=== PATIENT | female | born 1940 | race Caucasian/White ===

== ENCOUNTER 2017-05-31 14:18 | Outpatient (CLI) | payer MEDICARE ==
[2017-05-31 14:53] LABS: Hemoglobin A1c 6.1 % (4.0-6.0)
[2017-05-31 18:54] LABS: Microalbumin Urine Less than 1.0 mg/dL (0.5-50.0); Microalbumin/Creat Ratio 10.2 mg/g (Less than 30)
== END 2017-05-31 14:19 | disposition home or self-care (01) ==
LOC: HPCALD 14:18
PROVIDERS: ATTEND Family Medicine
DX: E11.9 Type 2 diabetes mellitus without complications (principal); E03.9 Hypothyroidism, unspecified
CPT/HCPCS: 36415; 82043; 83036; 84443

== ENCOUNTER 2017-11-14 12:21 | Emergency (ER) | payer MEDICARE ==
[2017-11-14] MEDS ORDERED: Albuterol Sulfate 2.5 mg/3 ml Neb ONE ×2 (12:48→13:49)
--- NOTE | 2017-11-14 12:56 | RAD ---
PORTABLE CHEST ONE VIEW: Date: 11-14-17 Time: 12:25 p.m. History: Dyspnea. FINDINGS: The heart size is borderline. The lungs are well expanded without focal areas of consolidation, pneum othorax, earl pleural edema or pleural effusions. IMPRESSION: No radiographic evidence of acute cardiopulmonary process. POS: C
[2017-11-14 13:02] LABS: #Basophils 0.1 thou/uL (0.0-0.2); #Eosinphils 0.1 thou/uL (0.0-0.7); #Lymphocytes 0.6 thou/uL (1.20-3.40); #Monocytes 0.7 thou/uL (0.11-0.59); #Neutrophils 7.3 thou/uL (1.40-6.50); %Basophils 1.7 % (0.0-1.0); %Eosinophils 0.6 % (0.0-10.0); %Lymphocytes 6.9 % (21.0-51.0); %Monocytes 7.8 % (0.0-10.0); %Neutrophils 82.9 % (42.0-75.0); Hemoglobin 13.4 g/dL (12.0-16.0); Mean Corpuscular HGB CONC 34.6 g/dL (32.0-36.0); Platelet Count 260 thou/uL (130-400); RBC Distribution Width 13.3 % (11.5-14.5); Red Blood Cell (RBC) Count 3.54 mill/uL (4.20-5.40); White Blood Cell (WBC) Count 8.8 thou/uL (4.8-10.8)
[2017-11-14] MEDS ORDERED: methylPREDNISolone Sod Succ/PF 125 MG/2 ML VIAL ONE (13:09)
[2017-11-14 13:10] LABS: ALT (SGPT) 30 U/L (8-55); AST (SGOT) 36 U/L (5-34); Albumin 3.8 g/dL (3.4-4.8); Alkaline Phosphatase 185 U/L (40-150); Anion Gap 20 mmol/L (10-20); BUN (Urea Nitrogen) 10 mg/dL (9.8-20.1); Bilirubin, Total 0.6 mg/dL (0.2-1.2); Calc. Creatinine Clearance 0 mL/min (70-130); Calcium 7.7 mg/dL (7.8-10.44); Carbon Dioxide 27 mmol/L (23-31); Chloride 92 mmol/L (98-107); Estimated GFR-MDRD 78; Globulin 3.6 g/dL (2.4-3.5); Glucose 133 mg/dL (83-110); Potassium 5.4 mmol/L (3.5-5.1); Protein, Total 7.4 g/dL (6.0-8.3); Sodium 134 mmol/L (136-145)
[2017-11-14 13:11] LABS: CKMB 2.7 ng/mL (0-6.6); Troponin I Less than 0.010 ng/mL (< 0.028)
[2017-11-14 13:12] LABS: Base Excess 4.5 mEq/L (-2 - +2); pH (venous) 7.4 (7.35-7.45)
[2017-11-14 13:17] LABS: MDiff Complete? YES; Macrocytosis MODERATE=16-30 cells (100X) (0-5/hpf)
[2017-11-14] MEDS ORDERED: Magnesium Sulfate 2 GM/100 ML BAG ONE (13:26)
[2017-11-14] MEDS ORDERED: cefTRIAXone\\ROCEPHIN 2 GM VIAL ONE (13:43)
[2017-11-14] MEDS ORDERED: Ketorolac Tromethamine 30 MG/ML VIAL ONE (14:00)
[2017-11-14] MEDS ORDERED: Albuterol Sulfate 1.25 MG/3 ML NEB ONE (14:00)
[2017-11-14 14:43] LABS: Bilirubin Negative (Negative); Blood, Urine Negative (Negative); Clarity Clear (Clear); Glucose, Urine (Dipstick) Negative (Negative); Leukocyte Negative (Negative); Nitrite Negative (Negative); Protein, Urine (Dipstick) Negative (Neg-Trace); Urobilinogen 0.2 mg/dL (0.2-1.0)
[2017-11-14 14:50] LABS: Specific Gravity, Urine 1.008 (1.005-1.030)
== END 2017-11-14 14:52 | disposition left against medical advice (07) ==
LOC: BURERS 12:21
DX: J44.1 Chronic obstructive pulmonary disease with (acute) exacerbation (principal); I10 Essential (primary) hypertension; Z87.891 Personal history of nicotine dependence; Z79.899 Other long term (current) drug therapy
CPT/HCPCS: 36415; 71010; 80053; 81003; 82553; 82805; 83605; 83880; 84484; 85025; 87040; 87086; 87804; 93005; 94640; 94760; 96365; 96367; 96375; J0696; J1885; J2930; J3475; J7611; J7620

== ENCOUNTER 2019-07-30 14:36 | Emergency (ER) | payer MEDICARE ==
[~2019-07-30 14:36] MED LIST: Iopamidol 370 76% 100 ML VIAL ONE
[2019-07-30 15:11] LABS: ALT (SGPT) 42 U/L (8-55); AST (SGOT) 15 U/L (5-34); Albumin 3.9 g/dL (3.4-4.8); Alkaline Phosphatase 95 U/L (40-150); Anion Gap 16 mmol/L (10-20); BUN (Urea Nitrogen) 19 mg/dL (9.8-20.1); Bilirubin, Total 0.4 mg/dL (0.2-1.2); CK (CPK) 19 U/L (29-168); Calc. Creatinine Clearance 0 mL/min (70-130); Estimated GFR-MDRD 58; Globulin 2.8 g/dL (2.4-3.5); Glucose 503 mg/dL (83-110); Lipase 11 U/L (8-78); Protein, Total 6.7 g/dL (6.0-8.3)
[2019-07-30 15:13] LABS: Hemoglobin 10.9 g/dL (12.0-16.0); Lymphocytes 1 % (21-51); MDiff Complete? YES; Macrocytosis SLIGHT = 6-15 cells (100X) (0-5/hpf); Mean Corpuscular HGB CONC 30.1 g/dL (32.0-36.0); Mean Corpuscular Hemoglobin 30.6 pg (27.0-31.0); Mean Platelet Volume 7.1 fL (7.4-10.4); Monocytes 3 % (0-10); Neutrophil 96 % (42-75); Platelet Count 238 thou/uL (130-400); RBC Distribution Width 13.6 % (11.5-14.5); Red Blood Cell (RBC) Count 3.56 mill/uL (4.20-5.40); Stomatocytes SLIGHT = 2-5 cells (100X) (0-1/hpf); White Blood Cell (WBC) Count 10.6 thou/uL (4.8-10.8)
[2019-07-30 15:14] LABS: Chloride 82 mmol/L (98-107); Sodium 135 mmol/L (136-145)
[2019-07-30] MEDS ORDERED: Insulin Regular 300 UNITS/3 ML VIAL ONE (15:15)
[2019-07-30 15:25] LABS: Carbon Dioxide Greater than 37 mmol/L (23-31)
[2019-07-30 15:35] LABS: CKMB 3.1 ng/mL (0-6.6)
[2019-07-30] MEDS ORDERED: Enoxaparin Sodium 100 MG/ML SYRINGE ONE (16:29)
[2019-07-30] MEDS ORDERED: Furosemide 40 MG/4 ML VIAL ONE (16:29)
[2019-07-30] MEDS ORDERED: Diltiazem 125 MG/25 ML ONE (16:29)
--- NOTE | 2019-07-30 20:53 | CT ---
CT ANGIO OF THE CHEST 07/30/[address] of the chest was done in this patient with dyspnea. A bolus of IV contrast was given follow ed by axial slices. Various reconstructions were done with MIP images through the pulmonary arteries. There is good opacification of the pulmonary arteries. No filling defects were seen to suggest emboli . There is no sign of aortic aneurysm or dissection. There is no sign of pericardial effusion. Both c oronary arteries fill. It is difficult to tell if there are any calcifications in them or not. There is prominence of the interstitial lung markings and bilateral pleural effusions, a little more on the right than the left. Some of the pleural fluid on the left may be slightly loculated but this is uncertain. There is an abnormal density in the right lower lobe posteriorly. It is slightly mass-l eben; however, it could just be a patch of atelectatic lung secondary to compression from the adjacent pleural fluid. It probably bears another scan at some point once the patient is out of the acute pha se. An incidental finding was an anterior compression of one of the mid-thoracic vertebra, but it appears to be old. The visible upper abdominal structures showed no acute findings. IMPRESSION: 1. No evidence of pulmonary embolism. 2. Findings suggestive of congestive heart failure with significant pleural effusions. 3. Some compressive atelectasis of the lower lobes. One area in the right lower lobe is slightly more mass-like but still may be atelectatic lung. I would suggest a follow-up CT after complete reso lution of her current problems. POS: HOME
--- NOTE | 2019-07-30 21:29 | RAD ---
PORTABLE CHEST: 07/30/19 An AP portable film at 1448 is compared with a 11/14/17 study. Diffuse pulmonary edema and bilateral pleural effusions are evident. The heart is upper normal in siz e. The findings are most suggestive of congestive heart failure. IMPRESSION: CHF. POS: HOME
== END 2019-07-30 17:10 | disposition short-term general hospital (02) ==
LOC: BURERS 14:36
DX: I11.0 Hypertensive heart disease with heart failure (principal); I50.9 Heart failure, unspecified; E11.65 Type 2 diabetes mellitus with hyperglycemia; I48.91 Unspecified atrial fibrillation; J44.9 Chronic obstructive pulmonary disease, unspecified; Z87.891 Personal history of nicotine dependence; Z79.899 Other long term (current) drug therapy
CPT/HCPCS: 71045; 71275; 80053; 82550; 82553; 83690; 83880; 84484; 85025; 93005; 94660; 96365; 96372; 96374; 96375; 96376; J1650; J1815; J1940; Q9967